=== PATIENT | female | born 1995 | race Caucasian/White ===

== ENCOUNTER 2016-10-10 10:53 | Emergency (ER) ==
[2016-10-10 11:03] VITALS: BP 110/79; TEMP 98.1; BMI 33.3
--- NOTE | 2016-10-10 11:10 | ED.PDOC ---
General ED Provider: Dr. GENNA DORSEY JR Chief Complaint: Back Pain Stated Complaint: Pain right lower back radiates right hip "throbbing" pain yesterday. Denies urinary Tried hot pad and Yovany Back and Body.[ End ]98.1 107 20 97% 110/79 10 Time Seen by Physician: 11:10 Mode of Arrival: Walk-In Information Source: Patient Exam Limitations: No limitations [facility] and Triage Documentation Reviewed and Agree: No Review of Systems - Review Of Systems Constitutional: Reports: No symptoms Eyes: Reports: No symptoms Ears, Nose, Mouth, Throat: Reports: No symptoms Respiratory: Reports: No symptoms Cardiac: Reports: No symptoms GI: Reports: No symptoms : Reports: No symptoms Musculoskeletal: Reports: Back pain, Muscle pain Skin: Reports: No symptoms Neurological: Reports: No symptoms Endocrine: Reports: No symptoms Hematologic/Lymphatic: Reports: No symptoms All Other Systems: Other Past Medical History - Past Medical History Previously Healthy: Yes Endocrine: Reports: None Cardiovascular: Reports: None Respiratory: Reports: None Hematological: Reports: Anemia (low iron ) Gastrointestinal: Reports: None Genitourinary: Reports: Kidney stones Neuro/Psych: Reports: None Musculoskeletal: Reports: None Cancer: Reports: None Last Menstrual Period: 4 years Other Pertinent Past Medical History: right carpal tunnel syndrome, low iron - Surgical History General Surgical History: Reports: (x1), Tonsillectomy - Family History Family History: Reports: None - Social History Smoking Status: Current every day smoker, Heavy tobacco smoker Hx Substance Use: No Alcohol Screening: Occasionally Physical Exam - Physical Exam Appearance: Well-appearing Pain Distress: Mild Eyes: SALOMON, EOMI, Conjunctiva clear ENT: Ears normal, Nose normal, Oropharynx normal Neck: Supple Respiratory: Airway patent, Breath sounds clear, Breath sounds equal, Respirations nonlabored Cardiovascular: RRR, Pulses normal, No rub, No murmur GI/: Soft, Nontender, No masses, Bowel sounds normal, No Organomegaly Musculoskeletal: Normal strength, ROM intact, No edema, No calf tenderness ( negative SLR no sciatica) Skin: Warm, Dry, Normal color Neurological: Sensation intact, Motor intact, Reflexes intact, Cranial nerves intact, Alert, Oriented Psychiatric: Affect appropriate, Mood appropriate Critical Care Note - Critical Care Note Total Time (mins): 0 Course - Course Orders, Labs, Meds: Lab Review 10/10/16 11:10 Urine Color Yellow Urine Clarity Clear Urine pH 5.5 Ur Specific [place] >=1.030 Urine Protein 1+ Urine Glucose (UA) Negative Urine Ketones 4+ Urine Blood Trace-lysed Urine Nitrite Negative Urine Bilirubin 2+ Urine Urobilinogen 1.0 Ur Leukocyte Esterase Negative Ur Squamous Epith Cells 2-5 Urine Bacteria Trace Urine Mucus 1+ Orders Category Date Time Status UA [URINALYSIS C & S IF INDICATED] Stat LAB 10/10/16 11:10 Completed Vital Signs: Temp Pulse Resp BP Pulse Ox 10/10/16 10:56 98.1 F 107 H 20 110/79 97 Departure - Departure Time of Disposition: 11:41 Disposition: HOME SELF-CARE Discharge Problem: Backache Low back strain Qualifiers: Encounter type: initial encounter Qualifier Code: (S39.012A) Strain of muscle, fascia and tendon of lower back, initial encounter Instructions: Low Back Strain (ED), Lower Back Exercises (ED), Core Strengthening Exercises (ED) Condition: Good Pt referred to PMD for follow-up: Yes Additional Instructions: ice packs for three days then may try warm packs daliy light exercise(walking) flexeril for spasms naprosyn for pain recheck PMD one week Prescriptions: Naproxen [Naprosyn] 500 mg PO Q12HR PRN #30 tablet PRN Reason: PAIN Cyclobenzaprine HCl [Flexeril] 5 mg PO TID PRN #15 tablet PRN Reason: Spasms Allergies/Adverse Reactions: Allergies No Known Allergies Allergy (Verified 10/10/16 11:02) Home Medications: Ambulatory Orders Etonogestrel [Nexplanon] 68 mg SQ DAILY 10/27/15 Cyclobenzaprine HCl [Flexeril] 5 mg PO TID PRN #15 tablet 10/10/16 Naproxen [Naprosyn] 500 mg PO Q12HR PRN #30 tablet 10/10/16
[2016-10-10 11:23] LABS: BILIRUBIN,URINE 2+ (NEGATIVE); KETONES,URINE 4+ (NEGATIVE); LEUKOCYTE ESTERASE ,URINE Negative (NEGATIVE); NITRITE,URINE Negative (NEGATIVE); PH,URINE 5.5 (5-9); PROTEIN,URINE 1+ (NEGATIVE); URINE, BLOOD Trace-lysed (NEGATIVE)
[2016-10-10 11:25] LABS: ADD URINE MICROSCOPIC YES
[2016-10-10 11:26] LABS: BACTERIA,URINE TRACE (NOT PRESENT)
== END 2016-10-10 12:04 | disposition home or self-care (01) ==
LOC: ED 10:53
DX: S39.012A Strain of muscle, fascia and tendon of lower back, initial encounter (principal); F17.210 Nicotine dependence, cigarettes, uncomplicated
CPT/HCPCS: 81001; 99283

== ENCOUNTER 2016-10-25 12:57 | Outpatient (CLI) | END 2016-10-25 12:58 | disposition home or self-care (01) | LOC: LAB 12:57 | PROVIDERS: ATTEND Nurse Practitioner Family | DX: J02.9 Acute pharyngitis, unspecified (principal) | CPT/HCPCS: 87651; 87880 ==

== ENCOUNTER 2016-12-08 19:03 | Emergency (ER) ==
[2016-12-08 19:13] VITALS: BP 125/75; TEMP 98.1; BMI 32.8
[2016-12-08] MEDS ORDERED: PREDNISONE PO STA (19:26)
[2016-12-08] MEDS ORDERED: TORADOL IM STA (19:26)
--- NOTE | 2016-12-08 19:29 | ED.PDOC ---
General ED Provider: Dr. MAXIMILIANO EDOUARD Chief Complaint: Shoulder Pain/Injury Stated Complaint: Been hurting in the right mid back pain, moving the shoulder hurts. no fall or injuries Time Seen by Physician: 19:27 Mode of Arrival: Walk-In Information Source: Patient Primary Care Provider: [facility] Nursing and Triage Documentation Reviewed and Agree: Yes Musculoskeletal Complaint Exam - Back Pain Complaint/Exam Mechanism of Injury: Reports: No known trauma Symptoms Are: Still present Timing: Constant Initial Severity: Moderate Current Severity: Moderate Location: Reports: Discrete Character: Reports: Aching, Throbbing Aggravating: Reports: Movements, Lifting Alleviating: Reports: None Associated Signs and Symptoms: Denies: Swelling, Redness, Bruising, Fever, Weakness, Numbness, Tingling, Abdominal pain, Flank pain, Bladder incontinence, Bowel incontinence, Weight loss, Pain with weight bearing Related History: Reports: Similar episode TAD Risk Factors: Reports: None AAA Risk Factors: Reports: None Cauda Equina Risk Factors: Reports: None Epidural Abcess Risk Factors: Reports: None Related Surgical History: Reports: None Focal Tenderness: Yes Paraspinal Muscle Tenderness: Yes Paraspinal Muscle Spasm: Yes Scoliosis: No Lordosis: No Kyphosis: No SLR Test: Right Negative, Left Negative Hip Motion Testing Pain: Right Negative, Left Negative Focal Weakness: Present: None Focal Sensory Loss: Present: None Gait: Present: Normal Differential Diagnoses: Fracture, Strain Review of Systems - Review Of Systems Constitutional: Reports: No symptoms Eyes: Reports: No symptoms Ears, Nose, Mouth, Throat: Reports: No symptoms Respiratory: Reports: No symptoms Cardiac: Reports: No symptoms GI: Reports: No symptoms : Reports: No symptoms Musculoskeletal: Reports: Back pain, Muscle pain Skin: Reports: No symptoms Neurological: Reports: No symptoms Endocrine: Reports: No symptoms Hematologic/Lymphatic: Reports: No symptoms All Other Systems: Reviewed and Negative Past Medical History - Past Medical History Previously Healthy: Yes Endocrine: Reports: None Cardiovascular: Reports: None Respiratory: Reports: None Hematological: Reports: Anemia (low iron ) Gastrointestinal: Reports: None Genitourinary: Reports: Kidney stones Neuro/Psych: Reports: None Musculoskeletal: Reports: None Cancer: Reports: None Last Menstrual Period: 2 months (irregular due to control pills) Other Pertinent Past Medical History: right carpal tunnel syndrome, low iron - Surgical History General Surgical History: Reports: (x1), Tonsillectomy - Family History Family History: Reports: None - Social History Smoking Status: Current every day smoker, Heavy tobacco smoker Smoking Cessation Counseling Time: > 10 min Hx Substance Use: No Alcohol Screening: None Physical Exam - Physical Exam Appearance: Well-appearing, No pain distress, Well-nourished Eyes: SALOMON, EOMI, Conjunctiva clear ENT: Ears normal, Nose normal, Oropharynx normal Respiratory: Airway patent, Breath sounds clear, Breath sounds equal, Respirations nonlabored Cardiovascular: RRR, Pulses normal, No rub, No murmur GI/: Soft, Nontender, No masses, Bowel sounds normal, No Organomegaly Musculoskeletal: Normal strength, ROM intact, No edema, No calf tenderness Skin: Warm, Dry, Normal color Neurological: Sensation intact, Motor intact, Reflexes intact, Cranial nerves intact, Alert, Oriented Psychiatric: Affect appropriate, Mood appropriate Interpretation - Radiology Interpretation Radiology Interpretation By: ED Physician Radiology Results: Negative Critical Care Note - Critical Care Note Total Time (mins): 0 Course - Course Orders, Labs, Meds: Lab Review 12/08/16 19:51 Serum , Qual Negative Orders Category Date Time Status SERUM Stat LAB 12/08/16 19:51 Completed Ketorolac Tromethamine [Toradol] MEDS 12/08/16 19:26 Discontinued 30 mg IM ONCE STA Prednisone MEDS 12/08/16 19:26 Discontinued 10 mg PO ONCE STA THORACIC SPINE, 3 VIEWS Stat RADS 12/08/16 19:27 Taken Medications Discontinued Medications Generic Name Dose Route Start Last Admin Trade Name Freq PRN Reason Stop Dose Admin Ketorolac Tromethamine 30 mg 12/08/16 19:26 12/08/16 19:36 Toradol IM 12/08/16 19:27 30 mg ONCE STA Administration Prednisone 10 mg 12/08/16 19:26 12/08/16 19:35 Prednisone PO 12/08/16 19:27 10 mg ONCE STA Administration Vital Signs: Temp Pulse Resp BP Pulse Ox 12/08/16 19:04 98.1 F 100 H 20 125/75 97 Departure - Departure Time of Disposition: 20:59 Disposition: HOME SELF-CARE Discharge Problem: Strain of mid-back Qualifiers: Encounter type: initial encounter Qualified Code(s): S29.012A - Strain of muscle and tendon of back wall of thorax, initial encounter Instructions: Upper Back Exercises (GEN) Condition: Good Pt referred to PMD for follow-up: No Additional Instructions: advised to quite smoking taks calcium and vitamin d otc pills hot pack rest take medication with food/ Prescriptions: Ketorolac Tromethamine [Toradol] 10 mg PO Q8H #10 tablet Prednisone 10 mg PO BIDWM #14 tablet Allergies/Adverse Reactions: Allergies No Known Allergies Allergy (Verified 12/08/16 19:14) Home Medications: Ambulatory Orders Etonogestrel [Nexplanon] 68 mg SQ DAILY 10/27/15 Ketorolac Tromethamine [Toradol] 10 mg PO Q8H #10 tablet 12/08/16 Prednisone 10 mg PO BIDWM #14 tablet 12/08/16 Disposition Discussed With: Patient, Family
[2016-12-08 20:09] LABS: SERUM PREGNANCY INTERNAL QC INTERNAL QC VALID
--- NOTE | 2016-12-09 09:47 | DI ---
Examination: Three views of the thoracic spine. HISTORY: Mid back pain. COMPARISON: 10/29/2015. FINDINGS: The cervical thoracic junction is obscured by overlying tissues. The vertebral body heigh t and alignment appears maintained. There is no acute fracture or dislocation. Visualized cardiopul monary structures without significant abnormalities. IMPRESSION: No acute abnormality in the visualized thoracic spine.
== END 2016-12-08 21:08 | disposition home or self-care (01) ==
LOC: ED 19:03
DX: S29.012A Strain of muscle and tendon of back wall of thorax, initial encounter (principal); F17.210 Nicotine dependence, cigarettes, uncomplicated
CPT/HCPCS: 36415; 84703; 96372; 99282

== ENCOUNTER 2017-12-22 05:23 | Emergency (ER) ==
[2017-12-22 05:31] VITALS: BP 118/79; TEMP 97.4; BMI 30.9
--- NOTE | 2017-12-22 05:57 | ED.PDOC ---
General ED Provider: Dr. HERSON WHEELER-ER Chief Complaint: Tooth Problem Stated Complaint: my tooth hurts Time Seen by Physician: 05:30 Mode of Arrival: Walk-In Information Source: Patient Exam Limitations: No limitations [facility] and T[facility] Documentation Reviewed and Agree: Yes Does patient meet sepsis criteria?: No System Inflammatory Response Syndrome: Not Applicable Sepsis Protocol: For patient's 13 years and over: Temp is 96.8 and below OR 101 and greater Pulse >90 BPM Resp >20/minute Acutely Altered Mental Status Are patient's symptoms suggestive of a new infection, such as: -Pneumonia -Skin, Soft Tissue -Endocarditis -UTI -Bone, Joint Infection -Implantable Device -Acute Abdominal Infection -Wound Infection -Meningitis -Blood Stream Catheter Infection -Unknown EENT Complaint Exam - Dental/Oral Complaint/Exam Mechanism of Injury: No known trauma Onset/Duration: 2 days Symptoms Are: Still present Timing: Constant Initial Severity: Mild Current Severity: Moderate Location: righ lower premolar Character: Reports: Dull, Aching, Throbbing Aggravating: Reports: Heat, Cold, Chewing Associated Signs and Symptoms: Reports: Swelling Dental/Oral Surgical History: Reports: None Tooth Findings: Present: Percussion tenderness Cervical Lymphadenopathy Present: No Facial Swelling Present: No Bleeding Present: No Oropharynx Findings: Absent: Clots, Active bleeding Septal Hematoma: No Foreign Body Present: No Dysphagia Present: No Drooling Present: No Asymmetrical Tonsillar Swelling Present: No Uvula Midline: Yes Virginie-tonsillar Fluctuence: No Trismus Present: No Palatal Petechiae Present: No Scarlatinaform Rash Present: No Differential Diagnoses: Dental Caries Review of Systems - Review Of Systems Constitutional: Reports: No symptoms Eyes: Reports: No symptoms Ears, Nose, Mouth, Throat: Reports: Mouth pain, Mouth swelling Respiratory: Reports: No symptoms Cardiac: Reports: No symptoms GI: Reports: No symptoms : Reports: No symptoms Musculoskeletal: Reports: No symptoms Skin: Reports: No symptoms Neurological: Reports: No symptoms Endocrine: Reports: No symptoms Hematologic/Lymphatic: Reports: No symptoms All Other Systems: Reviewed and Negative Past Medical History - Past Medical History Previously Healthy: Yes Endocrine: Reports: None Cardiovascular: Reports: None Respiratory: Reports: None Hematological: Reports: Anemia (low iron ) Gastrointestinal: Reports: None Genitourinary: Reports: Kidney stones Neuro/Psych: Reports: None Musculoskeletal: Reports: None Cancer: Reports: None Last Menstrual Period: 6 MONTHS AGO HAS EXPLANON Other Pertinent Past Medical History: right carpal tunnel syndrome, low iron - Surgical History General Surgical History: Reports: (x1), Tonsillectomy - Family History Family History: Reports: None - Social History Smoking Status: Current every day smoker, Heavy tobacco smoker Hx Substance Use: No Alcohol Screening: Occasionally - Immunizations Tetanus Shot up to Date: Yes Physical Exam - Physical Exam Appearance: Well-appearing, No pain distress, Well-nourished Pain Distress: Moderate Eyes: SALOMON, EOMI, Conjunctiva clear ENT: Ears normal, Nose normal, Oropharynx normal (exam does confirm right lower premolar tender with swollen surronding gum tissue) Neck: Supple Respiratory: Airway patent, Breath sounds clear, Breath sounds equal, Respirations nonlabored Cardiovascular: RRR GI/: Soft Musculoskeletal: Normal strength Skin: Warm, Dry, Normal color Neurological: Sensation intact, Motor intact, Reflexes intact, Cranial nerves intact, Alert, Oriented Psychiatric: Affect appropriate, Mood appropriate Critical Care Note - Critical Care Note Total Time (mins): 0 Course - Course Vital Signs: Temp Pulse Resp BP Pulse Ox 12/22/17 05:24 97.4 F L 83 18 118/79 98 Departure - Departure Time of Disposition: 05:57 Disposition: HOME SELF-CARE Discharge Problem: Toothache Instructions: Dental Abscess (ED) Condition: Good Pt referred to PMD for follow-up: No IPMP verified?: No Additional Instructions: augmentin 875mg bid x 7 days---norco 7.5mg q 4hrs prn pain #10--f/u wtih dentist edson Allergies/Adverse Reactions: Allergies No Known Allergies Allergy (Verified 12/22/17 05:31) Home Medications: Ambulatory Orders Etonogestrel [Nexplanon] 68 mg SQ DAILY 10/27/15 Disposition Discussed With: Patient, Family
== END 2017-12-22 06:03 | disposition home or self-care (01) ==
LOC: ED 05:23
DX: K08.89 Other specified disorders of teeth and supporting structures (principal); K04.7 Periapical abscess without sinus; F17.210 Nicotine dependence, cigarettes, uncomplicated
CPT/HCPCS: 99282